=== PATIENT | female | born 1980 | race American Indian/Alaskan Native ===

== ENCOUNTER 2017-03-07 13:23 | Outpatient (CLI) | payer MEDICAID ==
--- NOTE | 2017-03-07 15:22 | Ultrasound Report ---
Pelvic and transvaginal sonography: History: Evaluation post hysterectomy. Findings: Patient status post hysterectomy. Small nabothian cyst cervical cuff. The right ovary 5.2 x 2.8 x 4.6 cm. No mass. Left ovary 4.5 x 2.8 x 3.6 cm. No mass. Minimal fluid in cul-de-sac.
== END 2017-03-07 13:24 | disposition home or self-care (01) ==
LOC: US 13:23
PROVIDERS: ATTEND Obstetrics & Gynecology
DX: N88.8 Other specified noninflammatory disorders of cervix uteri (principal); Z90.710 Acquired absence of both cervix and uterus
CPT/HCPCS: 76830; 76856